=== PATIENT | male | born 1990 | race Caucasian/White ===

== ENCOUNTER 2017-11-27 09:39 | Emergency (ER) | payer OTHER, SELFPAY ==
[2017-11-27 09:40] VITALS: BP 120/68; PULSE 76; RESP 18; TEMP 36.6; O2SAT 99; BMI 28.3
[2017-11-27] MEDS: Diphth,Pertuss(Acell),Tet Vac 0.5 ML Vial IM (10:13)
--- NOTE | 2017-11-27 10:47 | ED.DEP ---
ED Disposition - Plan for ED Patient: Chief Complaint: Laceration Instructions: ED Laceration All Referrals: Care Physician,No Primary [Primary Care Provider] -
--- NOTE | 2017-11-27 10:50 | ED.VISSUMM ---
- ER Visit Summary Date of Service: 11/27/17 Chief Complaint: Left hand laceration History of Present Illness: The patient is a 27 M presenting with laceration to the index and middle finger of his left hand. Patient was at work using a knife to cut wire. His hand slipped and he cut his left index and middle finger. He is unsure of his last tetanus immunization. No other injuries. Physical Examination: Vitals are stable. Patient is afebrile. Alert no acute distress. HEENT exam is unremarkable. Lungs are clear and equal bilaterally. Heart is regular rate and rhythm. Extremities: left index finger 1.5 cm laceration distal lateral aspect, left middle finger 1.5 cm laceration distal lateral aspect. Normal tendon function. Normal cap refill. Active full range of motion. Skin is warm and dry. No focal neurologic deficit. Remainder of exam is unremarkable. Emergency Department Course and Treatment: Patient was given tetanus IM. Laceration was repaired under sterile conditions. Anesthetized with lidocaine locally and with digital block. Irrigated with saline. 3, 5-0 simple sutures were placed in the index finger. 2, 5-0 simple sutures were placed in the middle finger. Patient is advised to watch for signs of infection. Advised to follow-up with Worker's Compensation at [employer] per his company instructions. Disposition: Discharge home Impression: Left index and middle finger laceration, laceration repair This note was generated with [employer] dictation software. It may contain incorrect words, spelling, and punctuation that were not noted in review of the chart prior to signing ED Disposition - Plan for ED Patient: Chief Complaint: Laceration Instructions: ED Laceration All Referrals: Care Physician,No Primary [Primary Care Provider] -
--- NOTE | 2017-11-27 10:54 | ED.DCSUM_ITS ---
- ER Visit Summary Date of Service: 11/27/17 Chief Complaint: Left hand laceration History of Present Illness: The patient is a 27 M presenting with laceration to the index and middle finger of his left hand. Patient was at work using a knife to cut wire. His hand slipped and he cut his left index and middle finger. He is unsure of his last tetanus immunization. No other injuries. Physical Examination: Vitals are stable. Patient is afebrile. Alert no acute distress. HEENT exam is unremarkable. Lungs are clear and equal bilaterally. Heart is regular rate and rhythm. Extremities: left index finger 1.5 cm laceration distal lateral aspect, left middle finger 1.5 cm laceration distal lateral aspect. Normal tendon function. Normal cap refill. Active full range of motion. Skin is warm and dry. No focal neurologic deficit. Remainder of exam is unremarkable. Emergency Department Course and Treatment: Patient was given tetanus IM. Laceration was repaired under sterile conditions. Anesthetized with lidocaine locally and with digital block. Irrigated with saline. 3, 5-0 simple sutures were placed in the index finger. 2, 5-0 simple sutures were placed in the middle finger. Patient is advised to watch for signs of infection. Advised to follow-up with Worker's Compensation at [employer] per his company instructions. Disposition: Discharge home Impression: Left index and middle finger laceration, laceration repair This note was generated with [employer] dictation software. It may contain incorrect words, spelling, and punctuation that were not noted in review of the chart prior to signing ED Disposition - Plan for ED Patient: Chief Complaint: Laceration Instructions: ED Laceration All Referrals: Care Physician,No Primary [Primary Care Provider] -
[2017-11-27 11:44] VITALS: BP 123/77; PULSE 79; RESP 14
== END 2017-11-27 11:46 | disposition home or self-care (01) ==
PROVIDERS: Emergency Provider Emergency Medicine
DX: S61.211A Laceration without foreign body of left index finger without damage to nail, initial encounter (principal); S61.213A Laceration without foreign body of left middle finger without damage to nail, initial encounter; W26.0XXA Contact with knife, initial encounter; Y93.9 Activity, unspecified; Y92.89 Other specified places as the place of occurrence of the external cause; Y99.9 Unspecified external cause status; Z23 Encounter for immunization
CPT/HCPCS: 12002; 90471; 90715; 99283